=== PATIENT | male | born 1970 | race Caucasian/White ===

== ENCOUNTER 2023-10-29 02:50 | Emergency (ER) | payer OTHER ==
[~2023-10-29] VITALS: Ht 157.5 cm; Wt 65.0 kg
[2023-10-29 02:52] VITALS: BP 159/99; PULSE 83; RESP 18; TEMP 98.6; O2SAT 100
[2023-10-29] MEDS ORDERED: AMLO5TAB88 PO (04:05)
[2023-10-29] MEDS ORDERED: KEPP500 MT (04:05)
[2023-10-29] MEDS ORDERED: DIVA125T2 MT (04:05)
[2023-10-29] MEDS ORDERED: LORA-250 MT (04:17)
[2023-10-29] MEDS ORDERED: AMLO10TA80 MT (04:17)
[2023-10-29] MEDS ORDERED: HYDR-4001 MT (04:17)
[2023-10-29] MEDS ORDERED: LEVE1000 MT (04:17)
== END 2023-10-29 08:54 | disposition home or self-care (01) ==
LOC: ER 02:50
DX: R56.9 Unspecified convulsions (principal); G89.29 Other chronic pain; M25.512 Pain in left shoulder; I10 Essential (primary) hypertension; Z98.890 Other specified postprocedural states; Z76.0 Encounter for issue of repeat prescription
CPT/HCPCS: 99283; Z7610